=== PATIENT | male | born 1990 | race Caucasian/White ===

== ENCOUNTER 2017-10-01 18:59 | Emergency (ER) | payer MEDICAID, OTHER ==
[~2017-10-01] VITALS: Ht 170.2 cm; Wt 63.0 kg
[2017-10-01 19:02] VITALS: BP 139/84
[2017-10-01] MEDS ORDERED: HYDROcodone/APAP 5/325 TABLET PO STA (19:23)
[2017-10-01] MEDS ORDERED: LIDOCAINE 1%, 20ML SQ ONE (19:30)
[2017-10-01] MEDS ORDERED: SULFAMETH./TRIMETHOPRIM DS 800MG/160MG TABLET PO ONE (19:30)
[2017-10-01] MEDS ORDERED: DIPH,PERTUSS(ACELL),TET VAC/PF 0.5 ML IM-VACC ONE (19:30)
== END 2017-10-01 20:28 | disposition home or self-care (01) ==
LOC: ED 20:22
DX: L02.01 Cutaneous abscess of face (principal); L01.01 Non-bullous impetigo; F17.210 Nicotine dependence, cigarettes, uncomplicated
CPT/HCPCS: 76536; 99284